=== PATIENT | female | born 1950 | race Caucasian/White ===

== ENCOUNTER → 2016-05-20 | Outpatient (CLI) | payer MEDICARE, OTHER ==
--- NOTE | 2016-05-20 19:24 | CT ---
EXAMINATION TYPE: CT brain wo con DATE OF EXAM: 05/20/2016 6:43 PM COMPARISON: NONE HISTORY: Frontal injury 3 weeks ago. Patient complains of speech disturbance and difficulty walking CT DLP: 1183 mGycm Automated exposure control for dose reduction was used. FINDINGS: Ventricles and sulci appear normal for age. There is no mass effect nor midline shift. There is no si gn of intracranial hemorrhage. The calvarium appears intact. There is equal flow thickening in the sp henoid and posterior ethmoid air cells. I see no focal bone destruction. Calvarium is intact. Tempora l bones appear normal. There is no evidence of posterior fossa mass. IMPRESSION: Ethmoid and sphenoid sinusitis. Otherwise negative exam.
== END | disposition home or self-care (01) ==
LOC: RADCTMAIN 18:23
PROVIDERS: ATTEND Internal Medicine
DX: F44.89 Other dissociative and conversion disorders (principal)
CPT/HCPCS: 70450

== ENCOUNTER → 2016-11-14 | Outpatient (CLI) | payer MEDICARE, OTHER ==
--- NOTE | 2016-11-14 16:36 | CT ---
EXAMINATION TYPE: CT lumbar spine wo con DATE OF EXAM: 11/14/2016 COMPARISON: NONE HISTORY: Patient complains of chronic low back pain, recurrent falls, and bilateral leg numbness. CT DLP: 1731.1 mGycm CONTRAST: None TECHNIQUE: CT of the lumbar spine is performed on a spiral scan at 3 mm thick sections. Reconstructed images are performed in the coronal and sagittal planes. FINDINGS: T12-L1: No focal disc herniation or significant disc bulge is evident. No spinal canal stenosis or neural foraminal stenosis is present. L1-L2: There is narrowing of the disc height. Mild residual disc bulging is anterior thecal sac conta ct. Mild facet hypertrophy with ligamentum flavum laxity is present. Mild spinal canal narrowing to t his level may be present. Severe bilateral foraminal stenosis is present. L2-L3: Vacuum disc phenomenon is present. Facet hypertrophy is present with posterior lateral thecal sac compression. This is contributing to lateral canal stenosis. Severe foraminal stenosis is present . L3-L4: There is a grade 2 spondylolisthesis of L3 anterior and L4. Disc uncovering is present. No AP spinal canal stenosis is present. Pedicle screws is been removed. Foramen are patent. L4-L5: Disc spacer is been placed. There is narrowing of the disc height. No AP spinal canal stenosis present. Facet hypertrophy is present. Postsurgical changes are present. Foramen are patent. L5-S1: There is narrowing of the disc height. No focal disc herniation is evident. The left screw ext ends towards the foramen. No nerve root contact is identified. IMPRESSION: 1. Severe bilateral foraminal stenosis L1-L2 3 2. Grade 2 spondylolisthesis of L3 anteriorly on L4. 3. Lateral canal spinal canal stenosis L2-3 due to facet hypertrophy. 4. Mild canal narrowing L1-2 due to residual disc bulge and endplate spurring and facet hypertrophy.
== END | disposition home or self-care (01) ==
LOC: RADCTMAIN 16:07
PROVIDERS: ATTEND Internal Medicine
DX: M48.06 Spinal stenosis, lumbar region (principal); M99.73 Connective tissue and disc stenosis of intervertebral foramina of lumbar region; M51.36 Other intervertebral disc degeneration, lumbar region; M43.16 Spondylolisthesis, lumbar region; M46.06 Spinal enthesopathy, lumbar region
CPT/HCPCS: 72131

== ENCOUNTER → 2016-12-09 | Outpatient (CLI) | payer MEDICARE, OTHER ==
--- NOTE | 2016-12-09 20:12 | US ---
EXAMINATION TYPE: US carotid duplex BILAT DATE OF EXAM: 12/09/2016 COMPARISON: NONE CLINICAL HISTORY: G45.9 TIA. EXAM MEASUREMENTS: RIGHT: Peak Systolic Velocity (PSV) cm/sec ----- Right CCA: 98.7 ----- Right ICA: 88.6 ----- Right ECA: 68.7 ICA/CCA ratio: 0.9 RIGHT: End Diastole cm/sec ----- Right CCA: 22.7 ----- Right ICA: 29.0 ----- Right ECA: 11.0 LEFT: Peak Systolic Velocity (PSV) cm/sec ----- Left CCA: 82.2 ----- Left ICA: 103.1 ----- Left ECA: 121.3 ICA/CCA ratio: 1.3 LEFT: End Diastole cm/sec ----- Left CCA: 23.8 ----- Left ICA: 28.2 ----- Left ECA: 16.3 VERTEBRALS (direction of flow): Right Vertebral: Antegrade Left Vertebral: Antegrade No significant stenosis seen, very tortuous vessels bilaterally. Irregular heartbeat noted. There are tortuous internal carotid arteries. IMPRESSION: There is antegrade flow in both vertebral arteries. The images and measurements suggest close to 20% stenosis in both internal carotid arteries. Criteria for Assigning % of Stenosis / Diameter reduction (Estimation based on the indirect measurements of the internal carotid artery velocities (ICA PSV). 1. Normal (no stenosis)=ICA PSV < 125 cm/s: ratio < 2.0: ICA EDV<40 cm/s. 2. Less than 50% stenosis=ICA PSV < 125 cm/s: ratio < 2.0: ICA EDV<40 cm/s. 3. 50 to 69% stenosis=ICA PSV of 125 to 230 cm/s: ration 2.0 ? 4.0: ICA EDV 40-100 cm/s. 4. Greater than 70% stenosis to near occlusion= ICA PSV > 230 cm/s: ratio > 4.0: ICA EDV > 100 cm/s. 5. Near occlusion= ICA PSV velocities may be low or undetectable: variable ratio and ICA EDV. 6. Total occlusion=unable to detect flow.
== END | disposition home or self-care (01) ==
LOC: RADUSMAIN 17:47
PROVIDERS: ATTEND Internal Medicine
DX: G45.9 Transient cerebral ischemic attack, unspecified (principal)
CPT/HCPCS: 93880

== ENCOUNTER → 2017-09-15 | Outpatient (CLI) | payer MEDICARE, OTHER ==
--- NOTE | 2017-09-18 13:15 | MM ---
Reason for exam: screening (asymptomatic). Last mammogram was performed 8 years and 3 months ago. History: Patient is postmenopausal. Physical Findings: A clinical breast exam by your physician is recommended on an annual basis and results should be correlated with mammographic findings. MG 3D Screening Mammo W/Cad Bilateral CC and MLO view(s) were taken. Prior study comparison: June 16, 2009, bilateral diagnostic digital mammog. February 08, 2005, bilateral mammogram, performed at [facility]. There are scattered fibroglandular densities. Benign calcifications bilaterally. No suspicious abnormality. No significant changes when compared with prior studies. ASSESSMENT: Benign, BI-RAD 2 RECOMMENDATION: Routine screening mammogram of both breasts in 1 year.
== END | disposition home or self-care (01) ==
LOC: RADMAMWWP 14:41
PROVIDERS: ATTEND Internal Medicine
DX: Z12.31 Encounter for screening mammogram for malignant neoplasm of breast (principal)
CPT/HCPCS: 77063; 77067

== ENCOUNTER → 2018-01-24 | Outpatient (CLI) | payer MEDICARE, OTHER ==
--- NOTE | 2018-01-24 11:37 | CT ---
EXAMINATION TYPE: CT angio chest DATE OF EXAM: 01/24/2018 COMPARISON: None HISTORY: SOB CT DLP: 578.5 mGycm CONTRAST: CT chest with contrast and 3D reconstruction with MIP imaging is performed with IV Contrast, patient injected with 100 mL of Isovue 370. Contrast-enhanced CT of the chest was performed through the course of the pulmonary arteries with daniel g and mediastinal window settings submitted. 3D reconstruction with MIP imaging was also performed. PULMONARY ARTERIES: The pulmonary arteries and their major tributaries are patent. I do not see reggie dence for sizable filling defect to suggest pulmonary embolic process. LUNGS: The lungs are clear and free of infiltrate. No evidence for atelectasis. No pulmonary nodule or mass is detected. No pleural effusion. MEDIASTINUM: Thoracic aorta is of normal caliber,however, evaluation is limited given timing of the contrast bolus. If there is concern for thoracic aortic pathology consider KELSY. Correlate clinicall y . The heart is not enlarged. No evidence for mediastinal mass. No mediastinal lymph nodes greater than 1cm. HILAR STRUCTURES: No evidence for mass. No hilar lymph nodes greater than 1 cm. UPPER ABDOMEN: No significant abnormality is seen. IMPRESSION: 1. No evidence for Pulmonary embolism at this time.
== END | disposition home or self-care (01) ==
LOC: RADCTMAIN 10:13
PROVIDERS: ATTEND Internal Medicine
DX: R06.02 Shortness of breath (principal); Z01.89 Encounter for other specified special examinations
CPT/HCPCS: 82565; 84520; 71275; 36415; Q9967

== ENCOUNTER 2018-05-25 13:03 | Emergency (ER) | payer MEDICARE, OTHER ==
[2018-05-25] MEDS ORDERED: SODIUM CHLORIDE 0.9% 1,000 ML IV STA (13:32)
[2018-05-25] MEDS ORDERED: IPRATROPIUM-ALBUTEROL 3 ML NEB INHALATION STA (13:34)
[2018-05-25 14:17] LABS: Appearance,Urine Clear (Clear); Bilirubin,Urine Negative (Negative); Blood,Urine Negative (Negative); Color,Urine Yellow; Glucose,Urine (UA) Negative (Negative); Ketones,Urine Negative (Negative); Leukocyte Esterase,Urine Negative (Negative); Nitrite,Urine Negative (Negative); PH, Urine 6.5 (5.0-8.0); Protein,Urine Negative (Negative); Specific Gravity,Urine 1.016 (1.001-1.035); Urobilinogen,Urine <2.0 mg/dL (<2.0)
[2018-05-25 14:21] LABS: Anisocytosis Moderate; Basophils # (A) 0.1 k/uL (0-0.2); Basophils % (A) 0 %; Eosinophils # (A) 0.1 k/uL (0-0.7); Eosinophils % (A) 1 %; HCT 38.2 % (34.0-46.0); HGB 11.5 gm/dL (11.4-16.0); Hypochromasia Marked; Lymphocytes # (A) 2.8 k/uL (1.0-4.8); Lymphocytes % (A) 14 %; MCH 26.3 pg (25.0-35.0); MCV 87.6 fL (80.0-100.0); Mean Platelet Volume 6.9; Microcytosis Slight; Monocytes # (A) 1.2 k/uL (0-1.0); Monocytes % (A) 6 %; Neutrophils # (A) 15.7 k/uL (1.3-7.7); Neutrophils % (A) 77 %; Platelet Count 412 k/uL (150-450); RBC 4.36 m/uL (3.80-5.40); RDW 22.3 % (11.5-15.5); WBC 20.3 k/uL (3.8-10.6)
--- NOTE | 2018-05-25 14:21 | ED ---
General Adult HPI - General Chief complaint: Shortness of Breath Stated complaint: ANANTH-Dr sent Source: patient, RN notes reviewed, old records reviewed Mode of arrival: ambulatory Limitations: no limitations - History of Present Illness Initial comments: 67-year-old female patient past medical history of type 2 diabetes, hypertension , lumbar fusion presents to ED with 8 weeks of shortness of breath. Patient has been seen by her primary care physician for this multiple times. Patient was treated with azithromycin for presumed community-acquired pneumonia. Patient was seen by her primary care provider Dr. Turner today who recommend returning to ED for further evaluation. Patients complaints include 8 weeks of shortness of breath worse with exertion. Patient denies any associated chest pain. Patient denies pleuritic chest pain. Patient denies nausea vomiting diarrhea, fever chills, abdominal pain. Patient denies other complaints. Systemic: Pt denies fatigue, myalgia, fever/chills, rash. Pt denies weakness, night sweats, weight loss. Neuro: Pt denies headache, visual disturbances, syncope or pre-syncope. HEENT: Pt denies ocular discharge or irritation, otalgia, rhinorrhea, pharyngitis or notable lymphadenopathy. Cardiopulmonary: Pt denies chest pain, heart palpitations, dyspnea on exertion. Abdominal/GI: Pt denies abdominal pain, n/v/d. : Pt denies dysuria, burning w/ urination, frequency/urgency. Denies new onset urinary or bowel incontinence. MSK: Pt denies myalgia, loss of strength or function in extremities. Neuro: Pt denies new onset weakness, paresthesias. - Related Data Home Medications Medication Instructions Recorded Confirmed DULoxetine HCL [Cymbalta] 30 mg PO QAM 01/24/14 05/25/18 Metoprolol Succinate [Toprol XL] 50 mg PO 01/24/14 05/25/18 metFORMIN HCL [Glucophage] 500 mg PO BID 01/29/14 05/25/18 Buprenorphine HCl [Subutex] 8 mg SUBLINGUAL BID 05/25/18 05/25/18 INSULIN LISPRO (HumaLOG) [HumaLOG] 10 units SQ AC-TID 05/25/18 05/25/18 Insulin Glargine [Lantus] 42 unit SQ HS 05/25/18 05/25/18 Previous Rx's Medication Instructions Recorded Levofloxacin [Levaquin] 750 mg PO DAILY 7 Days tab 05/25/18 Allergies Allergy/AdvReac Type Severity Reaction Status Date / Time zolpidem tartrate AdvReac Intermediate Hallucinati Verified 05/25/18 14:03 [From [place]] ons Review of Systems ROS Statement: Those systems with pertinent positive or pertinent negative responses have been documented in the HPI. ROS Other: All systems not noted in ROS Statement are negative. Past Medical History Past Medical History: Atrial Fibrillation, Hypertension, Osteoarthritis (OA), Sleep Apnea/CPAP/BIPAP Additional Past Medical History / Comment(s): CPAP, "DOESN'T HELP.". LYME DISEASE 1998. VERY ILL AFTER 01/16/14 FLU & PNEUMONIA VACCINES GAVE HER A RASH, DIARRHEA,HEADACHE.. History of Any Multi-Drug Resistant Organisms: None Reported Past Surgical History: Back Surgery, Joint Replacement Additional Past Surgical History / Comment(s): BACK SURG X3, FUSION IN 1998, LAMINECTOMY IN JAN 2014. TOTAL LT KNEE 4-5 YRS AGO, Past Anesthesia/Blood Transfusion Reactions: Blood Transfusion Reaction Additional Past Anesthesia/Blood Transfusion Reaction / Comment(s): 1981 PATIENT HAD SEVERE REACTION TO TRANSFUSION, "GIVEN WRONG BLOOD TYPE." Past Psychological History: No Psychological Hx Reported Smoking Status: Never smoker Past Alcohol Use History: None Reported Past Drug Use History: None Reported - Past Family History Father Family Medical History: Cancer Additional Family Medical History / Comment(s): fATHER IN HIS 80'S OF [place]. Mother Additional Family Medical History / Comment(s): MOTHER AT AGE 80-UNSURE CAUSE. SHE DID HAVE AN ARRHYTHMIA OF SOME SORT. General Exam - General Exam Comments Initial Comments: Constitutional: NAD, AOX3, Pt has pleasant affect. HEENT: NC/AT, trachea midline, neck supple, no lymphadenopathy. Posterior pharynx non erythematous, without exudates. External ears appear normal, without discharge. Mucous membranes moist. Eyes PERRLA, EOM intact. There is no scleral icterus. No pallor noted. Cardiopulmonary: Mild tachycardia, regular rhythm, no murmurs, rubs or gallops, no JVD noted. Lungs CTAB in anterior and posterior looney. +2 periperal edema. Abdominal exam: Abdomen soft and non-distended. Abdomen non-tender to palpation in all 4 quadrants. Bowel sounds active in LLQ. No hepatosplenomegaly. No ecchymosis Neuro: CN II-XII grossly intact. No nuchal rigidity. MSK: No posterior calf tenderness bilaterally, homans sign negative bilaterally. Posterior tibialis and radial pulse +2 bilaterally. Sensation intact in upper and lower extremities. Full active ROM in upper and lower extremities, 5/5 stregnth. Limitations: no limitations Course Vital Signs 05/25/18 05/25/18 05/25/18 13:06 13:39 13:45 Temperature 98.1 F Pulse Rate 110 H 110 H 106 H Respiratory 24 Rate Blood Pressure 156/74 O2 Sat by Pulse 92 L Oximetry 05/25/18 05/25/18 16:16 17:41 Temperature 97.8 F 98 F Pulse Rate 100 90 Respiratory 18 18 Rate Blood Pressure 139/89 132/80 O2 Sat by Pulse 90 L 92 L Oximetry Medical Decision Making - Medical Decision Making 67-year-old female patient past medical history of type 2 diabetes, hypertension , lumbar fusion presents to ED with 8 weeks of shortness of breath. Patient has been seen by her primary care physician for this multiple times. Patient was treated with azithromycin for presumed community-acquired pneumonia. Patient was seen by her primary care provider Dr. Turner today who recommend returning to ED for further evaluation. Patients complaints include 8 weeks of shortness of breath worse with exertion. Patient denies any associated chest pain. Patient denies pleuritic chest pain. Patient denies nausea vomiting diarrhea, fever chills, abdominal pain. Patient denies other complaints. Patient vital signs displayed tachycardia, mild hypoxia of 90-92% sp02. Physical exam displayed mild tachycardia, +2 peripheral edema, no other acute pathology. Laboratory investigations revealed a leukocytosis of 20.3. Coagulation studies revealed increased APTT. D dimer was .061. CMP revealed elevated carbon dioxide, the line, with gross. CK-MB, troponin, BNP within normal limits. Lactic acid within normal limits. UA did not display acute pathology. Further history taking revealed that pt had recently been on course of po steroids which could be etiology of leukocytosis. Chest x-ray displayed right linear basilar opacities felt to represent atelectasis or resolving pneumonia given patient's clinical history. Chest CTA displayed no central pulmonary embolis, bilateral areas of subsegmental consolidation - correlate for atelectasis. Basilar bronchiectasis. Cardiomegaly with coronary artery calcification. EKG displayed sinus tachycardia with occasional PVC. All of these findings were explained patient at length. Pt verbalized understanding. Case was discussed at length with attending physician Dr. Lan. Admission was recommended. 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 Patient was extensively counseled on reasons why we recommend admission, pt verbalized understanding. Explained to patient that risks of refusing admission included , patient verbalized understanding. Recommended patient to return to ED emergently if conditions worsen in any way, new signs or symptoms develop, pt verbalized understanding. Patient prescribed Levaquin for possibility of residual pneumonia. Pt signed out AMA. Patient to follow up with primary care physician tomorrow. Case discussed at length with Dr. Lan. - Lab Data Result diagrams: 05/25/18 13:47 05/25/18 13:47 Lab Results 05/25/18 05/25/18 05/25/18 Range/Units 13:47 13:47 13:47 WBC 20.3 H (3.8-10.6) k/uL RBC 4.36 (3.80-5.40) m/uL Hgb 11.5 (11.4-16.0) gm/dL Hct 38.2 (34.0-46.0) % MCV 87.6 (80.0-100.0) fL MCH 26.3 (25.0-35.0) pg MCHC 30.0 L (31.0-37.0) g/dL RDW 22.3 H (11.5-15.5) % Plt Count 412 (150-450) k/uL Neutrophils % 77 % Lymphocytes % 14 % Monocytes % 6 % Eosinophils % 1 % Basophils % 0 % Neutrophils # 15.7 H (1.3-7.7) k/uL Lymphocytes # 2.8 (1.0-4.8) k/uL Monocytes # 1.2 H (0-1.0) k/uL Eosinophils # 0.1 (0-0.7) k/uL Basophils # 0.1 (0-0.2) k/uL Hypochromasia Marked Anisocytosis Moderate Microcytosis Slight PT (9.0-12.0) sec INR (<1.2) APTT (22.0-30.0) sec D-Dimer (<0.60) mg/L FEU Sodium 141 (137-145) mmol/L Potassium 4.7 (3.5-5.1) mmol/L Chloride 100 (98-107) mmol/L Carbon Dioxide 36 H (22-30) mmol/L Anion Gap 5 mmol/L BUN 31 H (7-17) mg/dL Creatinine 0.71 (0.52-1.04) mg/dL Est GFR (CKD-EPI)AfAm >90 (>60 ml/min/1.73 sqM) Est GFR (CKD-EPI)NonAf 89 (>60 ml/min/1.73 sqM) Glucose 136 H (74-99) mg/dL Plasma Lactic Acid Tayo (0.7-2.0) mmol/L Calcium 9.0 (8.4-10.2) mg/dL Magnesium 1.8 (1.6-2.3) mg/dL Total Bilirubin 0.5 (0.2-1.3) mg/dL AST 25 (14-36) U/L ALT 40 (9-52) U/L Alkaline Phosphatase 71 (38-126) U/L Total Creatine Kinase 40 (30-135) U/L CK-MB (CK-2) 1.4 (0.0-2.4) ng/mL CK-MB (CK-2) Rel Index 3.5 Troponin I <0.012 (0.000-0.034) ng/mL NT-Pro-B Natriuret Pep pg/mL Total Protein 5.7 L (6.3-8.2) g/dL Albumin 3.3 L (3.5-5.0) g/dL Urine Color Urine Appearance (Clear) Urine pH (5.0-8.0) Ur Specific [place] (1.001-1.035) Urine Protein (Negative) Urine Glucose (UA) (Negative) Urine Ketones (Negative) Urine Blood (Negative) Urine Nitrite (Negative) Urine Bilirubin (Negative) Urine Urobilinogen (<2.0) mg/dL Ur Leukocyte Esterase (Negative) Urine HCG, Qual (Not Detectd) 05/25/18 05/25/18 05/25/18 Range/Units 13:47 13:47 13:47 WBC (3.8-10.6) k/uL RBC (3.80-5.40) m/uL Hgb (11.4-16.0) gm/dL Hct (34.0-46.0) % MCV (80.0-100.0) fL MCH (25.0-35.0) pg MCHC (31.0-37.0) g/dL RDW (11.5-15.5) % Plt Count (150-450) k/uL Neutrophils % % Lymphocytes % % Monocytes % % Eosinophils % % Basophils % % Neutrophils # (1.3-7.7) k/uL Lymphocytes # (1.0-4.8) k/uL Monocytes # (0-1.0) k/uL Eosinophils # (0-0.7) k/uL Basophils # (0-0.2) k/uL Hypochromasia Anisocytosis Microcytosis PT (9.0-12.0) sec INR (<1.2) APTT (22.0-30.0) sec D-Dimer (<0.60) mg/L FEU Sodium (137-145) mmol/L Potassium (3.5-5.1) mmol/L Chloride (98-107) mmol/L Carbon Dioxide (22-30) mmol/L Anion Gap mmol/L BUN (7-17) mg/dL Creatinine (0.52-1.04) mg/dL Est GFR (CKD-EPI)AfAm (>60 ml/min/1.73 sqM) Est GFR (CKD-EPI)NonAf (>60 ml/min/1.73 sqM) Glucose (74-99) mg/dL Plasma Lactic Acid Tayo (0.7-2.0) mmol/L Calcium (8.4-10.2) mg/dL Magnesium (1.6-2.3) mg/dL Total Bilirubin (0.2-1.3) mg/dL AST (14-36) U/L ALT (9-52) U/L Alkaline Phosphatase (38-126) U/L Total Creatine Kinase (30-135) U/L CK-MB (CK-2) (0.0-2.4) ng/mL CK-MB (CK-2) Rel Index Troponin I (0.000-0.034) ng/mL NT-Pro-B Natriuret Pep 84 pg/mL Total Protein (6.3-8.2) g/dL Albumin (3.5-5.0) g/dL Urine Color Yellow Urine Appearance Clear (Clear) Urine pH 6.5 (5.0-8.0) Ur Specific [place] 1.016 (1.001-1.035) Urine Protein Negative (Negative) Urine Glucose (UA) Negative (Negative) Urine Ketones Negative (Negative) Urine Blood Negative (Negative) Urine Nitrite Negative (Negative) Urine Bilirubin Negative (Negative) Urine Urobilinogen <2.0 (<2.0) mg/dL Ur Leukocyte Esterase Negative (Negative) Urine HCG, Qual Not Detected (Not Detectd) 05/25/18 05/25/18 Range/Units 15:00 15:00 WBC (3.8-10.6) k/uL RBC (3.80-5.40) m/uL Hgb (11.4-16.0) gm/dL Hct (34.0-46.0) % MCV (80.0-100.0) fL MCH (25.0-35.0) pg MCHC (31.0-37.0) g/dL RDW (11.5-15.5) % Plt Count (150-450) k/uL Neutrophils % % Lymphocytes % % Monocytes % % Eosinophils % % Basophils % % Neutrophils # (1.3-7.7) k/uL Lymphocytes # (1.0-4.8) k/uL Monocytes # (0-1.0) k/uL Eosinophils # (0-0.7) k/uL Basophils # (0-0.2) k/uL Hypochromasia Anisocytosis Microcytosis PT 10.7 (9.0-12.0) sec INR 1.0 (<1.2) APTT 41.6 H (22.0-30.0) sec D-Dimer 0.61 H (<0.60) mg/L FEU Sodium (137-145) mmol/L Potassium (3.5-5.1) mmol/L Chloride (98-107) mmol/L Carbon Dioxide (22-30) mmol/L Anion Gap mmol/L BUN (7-17) mg/dL Creatinine (0.52-1.04) mg/dL Est GFR (CKD-EPI)AfAm (>60 ml/min/1.73 sqM) Est GFR (CKD-EPI)NonAf (>60 ml/min/1.73 sqM) Glucose (74-99) mg/dL Plasma Lactic Acid Tayo 1.6 (0.7-2.0) mmol/L Calcium (8.4-10.2) mg/dL Magnesium (1.6-2.3) mg/dL Total Bilirubin (0.2-1.3) mg/dL AST (14-36) U/L ALT (9-52) U/L Alkaline Phosphatase (38-126) U/L Total Creatine Kinase (30-135) U/L CK-MB (CK-2) (0.0-2.4) ng/mL CK-MB (CK-2) Rel Index Troponin I (0.000-0.034) ng/mL NT-Pro-B Natriuret Pep pg/mL Total Protein (6.3-8.2) g/dL Albumin (3.5-5.0) g/dL Urine Color Urine Appearance (Clear) Urine pH (5.0-8.0) Ur Specific [place] (1.001-1.035) Urine Protein (Negative) Urine Glucose (UA) (Negative) Urine Ketones (Negative) Urine Blood (Negative) Urine Nitrite (Negative) Urine Bilirubin (Negative) Urine Urobilinogen (<2.0) mg/dL Ur Leukocyte Esterase (Negative) Urine HCG, Qual (Not Detectd) - EKG Data -: EKG Interpreted by Me (and dr schrader) EKG Comments: ventricular rate 109, painful 124, QRS 88, QT/QTC 314 since 422. Sinus tachycardia with occasional PVC.no concerns for acute ischemia. Disposition Clinical Impression: Shortness of breath Disposition: Left Against Medical Advice Condition: Poor Prescriptions: Levofloxacin [Levaquin] 750 mg PO DAILY 7 Days tab Is patient prescribed a controlled substance at d/c from ED?: No Referrals: Barrera Turenr MD [Primary Care Provider] - 1-2 days
--- NOTE | 2018-05-25 14:22 | XR ---
EXAMINATION TYPE: XR chest 2V DATE OF EXAM: 05/25/2018 COMPARISON: 01/24/2018 HISTORY: Shortness of breath with recent pneumonia TECHNIQUE: Frontal and lateral views of the chest are obtained. FINDINGS: Linear right basilar opacity likely represents atelectasis although could represent resolv ing pneumonia in this patient with a history of recent pneumonia. There is no pulmonary vascular rissa estion, pleural effusion, or pneumothorax seen. The cardiac silhouette size is upper limits of harry l. Right midlung atelectasis and/or pleural parenchymal scarring is also noted. The osseous structur es are intact. IMPRESSION: Right linear basilar opacities favored to represent atelectasis although could represent resolving pneumonia given this patient's clinical history.
[2018-05-25 14:28] LABS: ALT 40 U/L (9-52); AST 25 U/L (14-36); Albumin 3.3 g/dL (3.5-5.0); Alkaline Phosphatase 71 U/L (38-126); Anion Gap 5 mmol/L; Blood Urea Nitrogen 31 mg/dL (7-17); Carbon Dioxide 36 mmol/L (22-30); Chloride 100 mmol/L (98-107); Glucose 136 mg/dL (74-99); Magnesium 1.8 mg/dL (1.6-2.3); Potassium 4.7 mmol/L (3.5-5.1); Sodium 141 mmol/L (137-145); Total Bilirubin 0.5 mg/dL (0.2-1.3); Total Protein 5.7 g/dL (6.3-8.2)
[2018-05-25 14:40] LABS: Creatine Kinase 40 U/L (30-135)
[2018-05-25 14:53] LABS: Creatine Kinase MB 1.4 ng/mL (0.0-2.4); Troponin I <0.012 ng/mL (0.000-0.034)
[2018-05-25 15:32] LABS: Partial Thromboplastin Time 41.6 sec (22.0-30.0); Prothrombin Time 10.7 sec (9.0-12.0)
--- NOTE | 2018-05-25 15:54 | CT ---
EXAMINATION TYPE: CT chest angio for PE DATE OF EXAM: 05/25/2018 COMPARISON: HISTORY: Difficulty breathing. CT DLP: 693.8 mGycm Automated exposure control for dose reduction was used. CONTRAST: CT Chest for pulmonary embolism performed with with IV Contrast, patient injected with 60ml mL of Iso merry 370. FINDINGS: LUNGS: Pleural-based subsegmental consolidation in the right lower lobe likely in the basis of atelec tasis rather than infiltrate. Bilateral areas of subsegmental consolidation most typical of atelectas is. Changes of central bronchiectasis noted. Linear changes involving the lung bases are suggestive o f atelectasis or scar. MEDIASTINUM: There is suboptimal enhancement of the pulmonary arteries. Grossly no central pulmonary embolism seen. Secondary and distal branches are markedly limited due to artifact. Coronary artery ca lcification noted. Heart mildly enlarged. OTHER: Hypertrophic and degenerative change of the spine.. Calcification involving the dome of the l iver incidentally noted. IMPRESSION: 1. Limited exam due to artifact and suboptimal opacification of the secondary and distal branches. No central pulmonary embolism. 2. Bilateral areas of subsegmental consolidation correlate for atelectasis. 3. Basilar bronchiectasis 4. Cardiomegaly with coronary artery calcification.
[2018-05-25 15:55] LABS: D-Dimer 0.61 mg/L FEU (<0.60)
[2018-05-25 16:17] VITALS: RESP 18
[2018-05-25 17:43] VITALS: BP 132/80; PULSE 90; TEMP 98
== END 2018-05-25 17:41 | disposition left against medical advice (07) ==
LOC: EC 13:03
DX: R06.02 Shortness of breath (principal); I49.3 Ventricular premature depolarization; R00.0 Tachycardia, unspecified; R09.02 Hypoxemia; R60.0 Localized edema; D72.829 Elevated white blood cell count, unspecified; R79.1 Abnormal coagulation profile; R79.81 Abnormal blood-gas level; J47.9 Bronchiectasis, uncomplicated; I11.9 Hypertensive heart disease without heart failure; E11.9 Type 2 diabetes mellitus without complications; M19.90 Unspecified osteoarthritis, unspecified site; Z88.8 Allergy status to other drugs, medicaments and biological substances; Z79.4 Long term (current) use of insulin; Z79.899 Other long term (current) drug therapy; Z96.652 Presence of left artificial knee joint; Z98.1 Arthrodesis status; Z82.49 Family history of ischemic heart disease and other diseases of the circulatory system
CPT/HCPCS: 36415; 94640; 93005; 85379; 83880; 80053; 82550; 82553; 83605; 83735; 84484; 85025; 85610; 85730; 81003; 81025; 87040; 71046; 71275; 99285; 96360; Q9967